=== PATIENT | male | born 1975 | race Two or more races ===

== ENCOUNTER 2019-08-08 01:01 | Emergency (ER) | payer OTHER ==
[~2019-08-08] VITALS: Ht 175.3 cm; Wt 98.0 kg
[2019-08-09] MEDS ORDERED: AYR SALINE NA14.1 GM NASAL (11:48)
[2019-08-09] MEDS ORDERED: AFRIN15 ML NASAL (11:48)
== END 2019-08-08 06:01 | disposition home or self-care (01) ==
LOC: ER 01:01
DX: R05 Cough (principal)

== ENCOUNTER 2019-08-09 09:27 | Outpatient (CLI) | payer OTHER ==
[~2019-08-09] VITALS: Ht 175.3 cm; Wt 98.0 kg
[2019-08-09] MEDS ORDERED: AYR SALINE NA14.1 GM NASAL (11:48)
[2019-08-09] MEDS ORDERED: AFRIN15 ML NASAL (11:48)
== END 2019-08-09 13:25 | disposition home or self-care (01) ==
LOC: OFIC 805 09:27
DX: J35.01 Chronic tonsillitis (principal); R07.0 Pain in throat; R04.0 Epistaxis

== ENCOUNTER 2020-02-21 02:19 | Emergency (ER) | payer OTHER ==
[~2020-02-21] VITALS: Ht 175.3 cm; Wt 95.7 kg
[~2020-02-21 02:19] MED LIST: AFRIN15 ML NASAL; AYR SALINE NA14.1 GM NASAL
[2020-02-21] MEDS ORDERED: HUMALOG JU100 UNIT/1 (02:28)
== END 2020-02-21 04:49 | disposition home or self-care (01) ==
LOC: ER 02:19
DX: R20.0 Anesthesia of skin (principal); R00.2 Palpitations

== ENCOUNTER 2021-10-14 06:53 | Emergency (ER) | payer OTHER ==
[~2021-10-14] VITALS: Ht 175.3 cm; Wt 93.4 kg
[~2021-10-14 06:53] MED LIST changes: +HUMALOG JU100 UNIT/1
[2021-10-14] MEDS ORDERED: COZAAR50 MG PO (07:09)
[2021-10-14] MEDS ORDERED: GLUMETZA1000 MG PO (07:09)
== END 2021-10-14 11:21 | disposition home or self-care (01) ==
LOC: ER 06:53
DX: I10 Essential (primary) hypertension (principal); Z86.39 Personal history of other endocrine, nutritional and metabolic disease